=== PATIENT | female | born 1940 | race Two or more races ===

== ENCOUNTER 2017-07-29 09:13 | Outpatient (CLI) | payer OTHER | END 2017-07-29 11:21 | disposition home or self-care (01) | LOC: MAMO-SONO 09:13 | DX: Z12.31 Encounter for screening mammogram for malignant neoplasm of breast (principal); Z87.898 Personal history of other specified conditions; N60.11 Diffuse cystic mastopathy of right breast; N60.12 Diffuse cystic mastopathy of left breast ==

== ENCOUNTER → 2017-07-29 | Outpatient (CLI) | payer OTHER ==
[~2017-07-29] MED LIST: LOSARTAN POTASS50 MG PO
== END | disposition home or self-care (01) ==
LOC: LAB 08:33
DX: N76.4 Abscess of vulva (principal); D64.89 Other specified anemias; E03.8 Other specified hypothyroidism; E55.9 Vitamin D deficiency, unspecified; E78.4 Other hyperlipidemia; Z12.11 Encounter for screening for malignant neoplasm of colon

== ENCOUNTER 2017-07-31 10:10 | Outpatient (CLI) | payer OTHER | END 2017-07-31 10:29 | disposition home or self-care (01) | LOC: NUCLEAR 10:10 | DX: M85.9 Disorder of bone density and structure, unspecified (principal); M81.0 Age-related osteoporosis without current pathological fracture ==

== ENCOUNTER → 2017-10-27 | Outpatient (CLI) | payer OTHER | END | disposition home or self-care (01) | LOC: TOM 08:36 | DX: R10.84 Generalized abdominal pain (principal) ==

== ENCOUNTER 2019-03-16 12:39 | Emergency (ER) | payer OTHER ==
[~2019-03-16] VITALS: Ht 167.6 cm; Wt 97.1 kg
[2019-03-16] MEDS ORDERED: LOSARTAN POTAS100 MG (13:18)
== END 2019-03-16 19:23 | disposition home or self-care (01) ==
LOC: ER 12:39
DX: K29.60 Other gastritis without bleeding (principal)